=== PATIENT | female | born 1985 | race African-American/Black ===

== ENCOUNTER 2018-12-09 16:40 | Emergency (ER) | payer OTHER ==
[2018-12-09 16:57] VITALS: BP 113/73; PULSE 89; TEMP 98.3; BMI 38.5
--- NOTE | 2018-12-09 16:59 | PDOC ---
Rapid Medical Evaluation Chief Complaint: Back Pain Time Seen by Provider: 12/09/18 16:53 Medical Evaluation: Allergies Allergy/AdvReac Type Severity Reaction Status Date / Time shellfish derived Allergy Itching Verified 12/09/18 16:53 12/09/18 16:57 33 year old female s/p slipped and landed on buttocks on the street c/o lower back pain. denies numbness to lower extremity, denies incontinence of bowel and urine Pe: patient alert ox3 A; back pain P: Patient to the Er for further management of care, Discharge Disposition - Diagnosis Back pain Qualifiers: Back pain location: low back pain Chronicity: acute Back pain laterality: unspecified Sciatica presence: without sciatica Qualified Code(s): M54.5 - Low back pain - Referrals - Patient Instructions - Post Discharge Activity
--- NOTE | 2018-12-09 17:15 | PDOC ---
History of Present Illness - General Chief Complaint: Back Pain Stated Complaint: BACK PAIN Time Seen by Provider: 12/09/18 16:53 History Source: Patient Exam Limitations: No Limitations - History of Present Illness Initial Comments: 12/09/18 18:25 Chief complaint: Back injury Patient is a 33-year-old female with no significant medical problems who states she slipped on oil, fell backwards yesterday, did not hit her head, no LOC who is complaining of back pain lower more so when she walks. Patient has no numbness, incontinence or saddle anesthesia. Patient is able to ambulate. Patient has not taken pain medicine. GENERAL/CONSTITUTIONAL: No fever, weakness. dizziness HEAD, EYES, EARS, NOSE AND THROAT: No change in vision. No ear pain or discharge. No sore throat. CARDIOVASCULAR: No chest pain RESPIRATORY: No shortness of breath or cough GASTROINTESTINAL: No pain, nausea, vomiting, diarrhea or constipation GENITOURINARY: No dysuria MUSCULOSKELETAL: No neck or back pain SKIN: No rash NEUROLOGIC: No headache, vertigo, loss of consciousness, or loss of sensation. GENERAL: The patient is awake, alert, and fully oriented, in no acute distress. HEAD: Normal with no signs of trauma. EYES: Pupils equal, round and reactive to light, sclera anicteric, conjunctiva clear. ENT: pharynx: no erythema, no exudate, uvula midline NECK: supple CHEST: clear, nontender, rr ABD: soft, nontender BACK: no spinal tenderness or signs of injury, minimal left EXTREMITIES: Normal range of motion, no edema. NEUROLOGICAL: Normal speech, normal gait. Cranial nerves II through XII grossly intact, no gross focal abnormalities SKIN: Warm, Dry Is this a multiple visit Asthma Patient?: No Past History - Past Medical History Allergies/Adverse Reactions: Allergies Allergy/AdvReac Type Severity Reaction Status Date / Time shellfish derived Allergy Itching Verified 12/09/18 16:57 Home Medications: Ambulatory Orders Cyclobenzaprine HCl [Flexeril 10 mg] 10 mg PO BID PRN #10 tablet 12/09/18 Asthma: No Cancer: No Cardiac Disorders: No COPD: No Diabetes: No HTN: No Seizures: No Thyroid Disease: No - Surgical History Abdominal Surgery: Yes (VAGINAL RECONSTRUCTION) - Reproductive History (#): 5 Para: 2 Cervical CA: No Dysfunctional Uterine Bleeding: No Ectopic : No Endometrial CA: No Polycystic Ovaries: No Therapeutic (s) & number: Yes (1) Tubal Ligation: No Spontaneous : 1 - Immunization History Immunization Up to Date: Yes - Psycho Social/Smoking Cessation Hx Smoking Status: No Smoking History: Current every day smoker Have you smoked in the past 12 months: Yes Number of Cigarettes Smoked Daily: 3 Information on smoking cessation initiated: Yes 'Breaking Loose' booklet given: 07/04/14 Hx Alcohol Use: No (SOCIAL) Drug/Substance Use Hx: No Hx Substance Use Treatment: No *Physical Exam - Vital Signs Last Vital Signs Temp Pulse Resp BP Pulse Ox 98.3 F 89 17 113/73 99 12/09/18 16:54 12/09/18 16:54 12/09/18 16:54 12/09/18 16:54 12/09/18 16:54 Medical Decision Making - Medical Decision Making He 3-year-old female, no medical problems, history of bilateral tubal ligation who slipped and fell, injuring her lower back, pelvis, is ambulatory but has pain more so to the left side. Will get x-rays. No other workup is indicated. Patient has not taken pain medicine. There is no numbness, incontinence or saddle anesthesia. 12/09/18 18:15 Patient feels better after Toradol, x-rays are negative. Patient does have some discomfort with walking, will prescribe muscle relaxer for it night because most of her pain is when she is twisting. Discussed issues, findings, results, applicable medications and treatments and follow-up. All these were understood and all questions were answered 12/09/18 18:33 Discharge - Discharge Information Problems reviewed: Yes Clinical Impression/Diagnosis: Back injury Qualifiers: Encounter type: initial encounter Qualified Code(s): S39.92XA - Unspecified injury of lower back, initial encounter Condition: Stable Disposition: HOME - Admission No - Additional Discharge Information Prescriptions: Cyclobenzaprine HCl [Flexeril 10 mg] 10 mg PO BID PRN #10 tablet PRN Reason: Back Pain Prescription Drug Monitoring Program (I-STOP) results: I-STOP not reviewed - Follow up/Referral Referrals: Eleuterio Collins MD [Staff Physician] - - Patient Discharge Instructions Patient Printed Discharge Instructions: Low Back Pain Additional Instructions: No heavy lifting or bending Apply ice to the area 20 minutes every 2 hours for the next 2 days Continue taking Motrin 600 mg every 6 hours for pain. If still in pain he can also take flexeril one tablet every 12 hours. better at bedtime Return to the nearest ER if numbness, weakness, severe pain, problems with urinating or having bowel movements. Call orthopedist today for an appointment for further evaluation - Post Discharge Activity
[2018-12-09] MEDS ORDERED: KETOROLAC TROMETHAMINE 60 MG/2 ML VIAL IM ONE (17:30)
[2018-12-09] MEDS ORDERED: KETOROLAC TROMETHAMINE 60 MG/2 ML VIAL ONE (17:31)
== END 2018-12-09 18:34 | disposition home or self-care (01) ==
LOC: JERFT 16:40
PROC: 3E0233Z Introduction of Anti-inflammatory into Muscle, Percutaneous Approach (ICD-10-PCS; principal; 2018-12-09)
DX: S39.82XA Other specified injuries of lower back, initial encounter (principal); M54.5 Low back pain; W01.0XXA Fall on same level from slipping, tripping and stumbling without subsequent striking against object, initial encounter; Y93.01 Activity, walking, marching and hiking; Y92.414 Local residential or business street as the place of occurrence of the external cause; Y99.8 Other external cause status; F17.210 Nicotine dependence, cigarettes, uncomplicated; Z91.013 Allergy to seafood
CPT/HCPCS: 72100-TC-FY; 72170-TC-FY; 99282-25